=== PATIENT | female | born 1960 | race Hispanic/Latino ===

== ENCOUNTER 2018-06-15 07:44 | Day surgery (SDC) | payer OTHER ==
[2018-06-15] MEDS ORDERED: NACL 0.9% 500 ML 500 ML IV SCH (08:00)
[2018-06-15 08:12] LABS: Basophils # (Auto) 0.1 K/mm3 (0.0-0.1); Basophils % (Auto) 1.1 % (0.0-1.8); Eosinophils # (Auto) 0.2 K/mm3 (0.0-0.4); Hematocrit 35.3 % (30.3-42.9); Hemoglobin 12.1 gm/dl (10.1-14.3); Lymphocytes % (Auto) 15.8 % (13.4-35.0); Mean Corpuscular HGB Conc 34 % (30-34); Mean Corpuscular Hemoglobin 29 pg (28-32); Mean Corpuscular Volume 86 fl (79-97); Monocytes # (Auto) 0.4 K/mm3 (0.0-0.8); Monocytes % (Auto) 7.1 % (0.0-7.3); Platelet Count 239 K/mm3 (140-440); Red Cell Distribution Width 13.7 % (13.2-15.2)
[2018-06-15 08:22] LABS: INR 1.01 (0.87-1.13)
[2018-06-15 08:23] LABS: BUN/Creatinine Ratio 26; Blood Urea Nitrogen 13 mg/dL (7-17); Calcium 9.1 mg/dL (8.4-10.2); Hemolysis Index 12
[2018-06-15] MEDS ORDERED: CALAN ONE (10:08)
[2018-06-15] MEDS ORDERED: HEPARIN/NS 5000 UNIT/500ML(CATH LAB) 1,500 ML IR ONE (10:08)
[2018-06-15] MEDS ORDERED: NITROGLYCERIN SYRINGE 0 ML ONE (10:08)
[2018-06-15] MEDS ORDERED: HEPARIN 10,000 UNITS/10 ML ONE (10:08)
[2018-06-15] MEDS: VERSED ONE ×2 (10:43→10:59)
[2018-06-15] MEDS: XYLOCAINE 2% INFILTRATI ONE ×2 (10:43→11:01)
[2018-06-15] MEDS: SUBLIMAZE ONE ×2 (10:43→10:59)
[2018-06-15] MEDS ORDERED: BENADRYL ONE (11:01)
[2018-06-15] MEDS ORDERED: CATAPRES PO PRN (12:24)
--- NOTE | 2018-06-15 12:24 | Discharge Summary ---
Short Stay Discharge Plan Activity: advance as tolerated Weight Bearing Status: Partial Weight Bearing Diet: low fat, low cholesterol, low salt, diabetic Wound: keep clean and dry Special Instructions: no heavy lifting (3 days), hold Metformin (48 hrs) Follow up with: HERNAN PARKINSON MD [Primary Care Provider] - 7 Days GRAHAM MCDOWELL MD [Staff Physician] - 7 Days
--- NOTE | 2018-06-15 12:35 | Cardiac Catherization Report ---
CARDIAC CATHETERIZATION REASON FOR PROCEDURE: The patient is a 58-year-old woman with COPD on home O2, who presented with progressive shortness of breath. A thallium stress test demonstrated a fixed anterior wall defect. Due to continued symptoms and abnormal thallium stress test, she was recommended for right and left heart catheterization. PROCEDURES: 1. Left heart catheterization. 2. Right heart catheterization. 3. Selective left and right coronary angiography. 4. Left ventricular angiography. 5. Sedation time: 10:58 start and 11:22 end. DESCRIPTION OF PROCEDURE: The patient was prepped and draped in a sterile fashion after informed consent. The right femoral artery and vein were both entered using Seldinger technique. A 6-Haitian sheath was placed in the artery and an 8-Haitian sheath in the vein. A Hinton-Lo catheter was then advanced through the venous sheath, into the right heart and into the pulmonary artery position. A pigtail catheter was similarly inserted into the femoral arterial sheath, and into the right ventricle. Simultaneous right and left heart filling pressures were recorded. Cardiac output was measured using the thermodilution method. The Hinton-Lo catheter was then withdrawn and right heart pressures recorded on pullback. Left ventricular angiography was then performed following which the pigtail catheter was withdrawn across the aortic valve and transaortic gradient recorded. We then performed selective left and right coronary angiography, following which the catheters were removed, sheath removed, and arterial hemostasis achieved using an Angio-Seal device. Venous hemostasis was performed using manual compression. The patient was returned to the postprocedure unit in stable condition. There were no complications. FINDINGS: HEMODYNAMICS: Mean right atrial pressure was 18. Right ventricular pressure of 50/20. Pulmonary artery pressure was 50/30. The mean pulmonary artery wedge pressure was 25. Cardiac output was measured at 8.9 liters per minute. Left ventricular end-diastolic pressure was 25. Ascending aortic pressure was 174/80. There was no significant pressure gradient on pullback across the aortic valve. CORONARY ANGIOGRAPHY: Left main coronary artery was angiographically normal. Left anterior descending artery and its diagonal branches were angiographically normal. The circumflex artery and its obtuse marginal branches were angiographically normal. The right coronary artery was dominant and similarly angiographically normal. There was mild left ventricular systolic dysfunction with mild diffuse hypokinesis. Left ventricular ejection fraction estimated at 45%. CONCLUSION: 1. Elevated right and left heart filling pressures, moderate pulmonary hypertension. 2. Angiographically normal coronary arteries. 3. Mild nonischemic cardiomyopathy, with left ventricular ejection fraction 45%. RECOMMENDATION: 1. Risk factor modification and medical therapy. 2. Pulmonary evaluation and further management of chronic obstructive pulmonary disease. JOB# [id number] CA/NTS
[2018-06-15] MEDS ORDERED: NACL 0.9% 1000 ML 1,000 ML IV SCH (13:00)
[2018-06-15 14:24] VITALS: BP 146/54
== END 2018-06-15 15:45 | disposition home or self-care (01) ==
LOC: CATHLABREC 07:44
PROVIDERS: ATTEND Internal Medicine Cardiovascular Disease
DX: I42.9 Cardiomyopathy, unspecified (principal); I27.20 Pulmonary hypertension, unspecified; J44.9 Chronic obstructive pulmonary disease, unspecified; I10 Essential (primary) hypertension; G47.30 Sleep apnea, unspecified; E03.9 Hypothyroidism, unspecified; Z79.899 Other long term (current) drug therapy; Z79.82 Long term (current) use of aspirin; Z91.040 Latex allergy status; Z91.048 Other nonmedicinal substance allergy status; M10.079 Idiopathic gout, unspecified ankle and foot; Z98.890 Other specified postprocedural states; Z98.51 Tubal ligation status; Z82.49 Family history of ischemic heart disease and other diseases of the circulatory system; Z83.3 Family history of diabetes mellitus; Z82.5 Family history of asthma and other chronic lower respiratory diseases; Z80.8 Family history of malignant neoplasm of other organs or systems; Z83.49 Family history of other endocrine, nutritional and metabolic diseases; Z87.891 Personal history of nicotine dependence
CPT/HCPCS: 36415; 80048; 82962; 85025; 85610; 85730; 93005; 93010; 93460; 99156; 99157; C1760; C1894; J1200; J1644; J2250; J3010; J7040; Q9967

== ENCOUNTER 2018-12-05 22:00 | Inpatient (IN) | payer OTHER ==
--- NOTE | 2018-12-05 22:12 | Emergency Department Report ---
Addendum entered and electronically signed by EARL DEL VALLE NP 12/05/18 22:13: Blank Doc - Documentation Documentation: Correction: Patient to be seen in Main ED. Original Note: Blank Doc - Documentation Documentation: This is a 58-year-old female that presents with SOB. HX of COPD. Was seen in urgent care and was treated with symptoms resolved but came back tonight. Patient also has cough with mucus production. This initial assessment diagnostic orders/clinical plan/treatment(s) is/are subject to change based on patient's health status, clinical progression and re- assessment by fellow clinical providers in the ED. Further treatment and workup at subsequent clinical providers discretion. Patient/guardians urged not to elope from ED s their condition may be serious if not clinically assessed and managed. Initial orders include: 1-patient sent to [facility] for further evaluation and treatment. 2- Breathing treatment 3- CXR 4- labs
[2018-12-05] MEDS ORDERED: ATROVENT IH ONE (22:13)
[2018-12-05] MEDS ORDERED: PROVENTIL IH ONE (22:13)
[2018-12-05] MEDS ORDERED: DECADRON IV ONE (22:13)
--- NOTE | 2018-12-05 22:57 | XRay Report ---
FINAL REPORT PROCEDURE: XR CHEST ROUTINE 2V TECHNIQUE: PA and lateral chest radiographs were obtained. CPT 92464 HISTORY: sob COMPARISON: August 19, 2018 FINDINGS: Heart: Normal. Mediastinum/Vessels: Normal. Lungs/Pleural space: There is mild interstitial accentuation of the lungs. No focal infiltrate. No pl eural effusion. Bony thorax: No acute osseous abnormality. Mild degenerative change. Other: IMPRESSION: Fibrotic densities. No focal infiltrate.
[2018-12-05 23:17] LABS: Basophils # (Auto) 0.1 K/mm3 (0.0-0.1); Basophils % (Auto) 0.4 % (0.0-1.8); Hematocrit 36.2 % (30.3-42.9); Hemoglobin 12.1 gm/dl (10.1-14.3); Lymphocytes # (Auto) 0.8 K/mm3 (1.2-5.4); Lymphocytes % (Auto) 4.7 % (13.4-35.0); Mean Corpuscular HGB Conc 34 % (30-34); Mean Corpuscular Volume 89 fl (79-97); Monocytes # (Auto) 0.9 K/mm3 (0.0-0.8); Monocytes % (Auto) 5.6 % (0.0-7.3); Platelet Count 312 K/mm3 (140-440); Red Blood Count 4.09 M/mm3 (3.65-5.03); Red Cell Distribution Width 14.2 % (13.2-15.2)
[2018-12-05 23:42] LABS: Alanine Aminotransferase 19 units/L (7-56); BUN/Creatinine Ratio 20; Blood Urea Nitrogen 16 mg/dL (7-17); Calcium 9.6 mg/dL (8.4-10.2); Hemolysis Index 2
--- NOTE | 2018-12-06 00:41 | Emergency Department Report ---
ED Shortness of Breath HPI - General Chief Complaint: Dyspnea/Respdistress Stated Complaint: MATA Time Seen by Provider: 12/05/18 22:10 Source: patient Mode of arrival: Ambulatory Limitations: No Limitations - History of Present Illness Initial Comments: 58-year-old female with history of COPD presents to ED with complaint shortness of breath. Patient reported cough productive of yellow sputum, wheezing, dyspnea on exertion. Patient denies fever. Patient states she was seen at urgent care facility on yesterday and was given a breathing treatment along with prescription for prednisone and cough medication. Patient states she was feeling okay until this evening when her symptoms returned. She administered a breathing treatment at home, however did not help so she decided to come to the ER. She denies chest pain. PCP: Dr Slade Sweeney: Dr Aster SARKAR Complaint: shortness of breath -: days(s) (3) Severity: moderate Consistency: intermittent Improves With: bronchodilators Worsens With: exertion, coughing Known History Of: COPD Associated Symptoms: cough, sputum production Treatments Prior to Arrival: bronchodilator - Related Data Home Medications Medication Instructions Recorded Confirmed Last Taken Albuterol Sulfate [Ventolin Hfa] 2 puff INHALATION Q4H PRN 06/15/18 12/06/18 06/01/18 2 puffs Aspirin EC [Aspirin Enteric Coated 325 mg PO DAILY 06/15/18 12/06/18 06/14/18 22:00 TAB] 325mg Gabapentin [Neurontin] 300 mg PO HS 06/15/18 12/06/18 06/14/18 300mg Labetalol HCl 300 mg PO BID 06/15/18 12/06/18 06/15/18 06:00 300mg Levothyroxine [Synthroid] 112 mcg PO DAILY 06/15/18 12/06/18 06/15/18 06:00 112 mcg Pravastatin [Pravachol] 20 mg PO HS 06/15/18 12/06/18 06/14/18 20mg Verapamil ER [Calan SR] 180 mg PO HS 06/15/18 12/06/18 06/14/18 22:30 180mg Cetirizine HCl [Allergy Relief] 10 mg PO DAILY 08/19/18 12/06/18 Unknown Tiotropium [Spiriva] 2 puff IH DAILY 12/06/18 12/06/18 Unknown Previous Rx's Medication Instructions Recorded Last Taken Type glipiZIDE [Glucotrol] 5 mg PO QDAY #30 tablet 08/24/18 Unknown Rx Allergies Allergy/AdvReac Type Severity Reaction Status Date / Time contact metal agent Allergy Rash Verified 06/15/18 07:40 latex Allergy Hives Verified 01/19/14 12:55 ED Review of Systems ROS: Stated complaint: MATA Other details as noted in HPI Comment: All other systems reviewed and negative Constitutional: denies: chills, fever Respiratory: cough, SOB with exertion, wheezing Cardiovascular: denies: chest pain ED Past Medical Hx - Past Medical History Hx Hypertension: Yes Hx Diabetes: Yes Hx Asthma: Yes Hx COPD: Yes Additional medical history: thyroid problem; High cholestrol - Surgical History Additional Surgical History: adrenal gland right side removed. Tubal ligation. cardiac cath - Social History Smoking Status: Former Smoker Substance Use Type: None - Medications Home Medications: Home Medications Medication Instructions Recorded Confirmed Last Taken Type Albuterol Sulfate [Ventolin Hfa] 2 puff INHALATION Q4H PRN 06/15/18 12/06/18 06/01/18 History 2 puffs Aspirin EC [Aspirin Enteric Coated 325 mg PO DAILY 06/15/18 12/06/18 06/14/18 22:00 History TAB] 325mg Gabapentin [Neurontin] 300 mg PO HS 06/15/18 12/06/18 06/14/18 History 300mg Labetalol HCl 300 mg PO BID 06/15/18 12/06/18 06/15/18 06:00 History 300mg Levothyroxine [Synthroid] 112 mcg PO DAILY 06/15/18 12/06/18 06/15/18 06:00 History 112 mcg Pravastatin [Pravachol] 20 mg PO HS 06/15/18 12/06/18 06/14/18 History 20mg Verapamil ER [Calan SR] 180 mg PO HS 06/15/18 12/06/18 06/14/18 22:30 History 180mg Cetirizine HCl [Allergy Relief] 10 mg PO DAILY 08/19/18 12/06/18 Unknown History glipiZIDE [Glucotrol] 5 mg PO QDAY #30 tablet 08/24/18 12/06/18 Unknown Rx Tiotropium [Spiriva] 2 puff IH DAILY 12/06/18 12/06/18 Unknown History ED Physical Exam - General Limitations: No Limitations General appearance: alert - Head Head exam: Present: atraumatic, normocephalic - Eye Eye exam: Present: normal appearance - ENT ENT exam: Present: mucous membranes moist - Neck Neck exam: Present: normal inspection - Respiratory Respiratory exam: Present: wheezes (slight), decreased breath sounds - Cardiovascular Cardiovascular Exam: Present: normal rhythm, tachycardia - GI/Abdominal GI/Abdominal exam: Present: soft. Absent: distended - Extremities Exam Extremities exam: Absent: pedal edema, calf tenderness - Neurological Exam Neurological exam: Present: alert, oriented X3 - Psychiatric Psychiatric exam: Present: normal affect, normal mood - Skin Skin exam: Present: warm, dry, intact, normal color ED Course Vital Signs 12/05/18 12/05/18 12/05/18 22:07 22:10 23:51 Temperature 98.2 F 98.2 F 98.2 F Pulse Rate 139 H 138 H 119 H Pulse Rate [ Bilateral] Respiratory 18 22 28 H Rate Respiratory Rate [Bilateral ] Blood Pressure 174/85 174/85 Blood Pressure 139/76 [Left] O2 Sat by Pulse 94 94 91 Oximetry 12/05/18 12/06/18 12/06/18 23:54 00:00 00:47 Temperature Pulse Rate 116 H Pulse Rate [ 118 H Bilateral] Respiratory 21 Rate Respiratory 28 H Rate [Bilateral ] Blood Pressure 132/63 Blood Pressure [Left] O2 Sat by Pulse 98 96 Oximetry 12/06/18 01:00 Temperature Pulse Rate 102 H Pulse Rate [ Bilateral] Respiratory 17 Rate Respiratory Rate [Bilateral ] Blood Pressure 131/74 Blood Pressure [Left] O2 Sat by Pulse 95 Oximetry ED Medical Decision Making - Lab Data Result diagrams: 12/05/18 22:56 12/05/18 22:56 - EKG Data -: EKG Interpreted by Ia EKG shows normal: sinus rhythm, axis, intervals, QRS complexes, ST-T waves Rate: tachycardia (rate 101) - EKG Data Interpretation: no acute changes - Radiology Data Radiology results: report reviewed, image reviewed - Medical Decision Making 58-year-old female with COPD exacerbation. Seen at urgent care yesterday, required ED visit today for shortness of breath. Patient afebrile. On exam patient has decreased breath sounds with slight wheezing. She was given a one nebulizer treatment here in ED, after which she states she is feeling much better. O2 sats 91% on room air following neb treatment, not on home O2. Spoke w/ Dr Nagy, hospitalist, will admit. - Differential Diagnosis COPD, CHF, pneumonia Critical Care Time: Yes Critical care time in (mins) excluding proc time.: 30 Critical care attestation.: If time is entered above; I have spent that time in minutes in the direct care of this critically ill patient, excluding procedure time. Critical Care Time: 30 minutes ED Disposition Clinical Impression: COPD with acute exacerbation, Hypoxia Disposition: 09 OP ADMIT IP TO THIS HOSP Is pt being admited?: Yes Condition: Stable Instructions: Chronic Obstructive Pulmonary Disease (ED) Time of Disposition: 01:53
[2018-12-06] MEDS ORDERED: DECADRON ONE (01:18)
[2018-12-06] MEDS ORDERED: LEVAQUIN PO ONE (01:49)
[2018-12-06] MEDS ORDERED: ZOFRAN IV PRN (02:53)
[2018-12-06] MEDS ORDERED: SODIUM CHLORIDE FLUSH SYRINGE 10 ML IV PRN (02:53)
[2018-12-06] MEDS ORDERED: TYLENOL PO PRN (02:53)
--- NOTE | 2018-12-06 02:57 | History and Physical Report ---
Medications and Allergies Allergies Allergy/AdvReac Type Severity Reaction Status Date / Time contact metal agent Allergy Rash Verified 06/15/18 07:40 latex Allergy Hives Verified 01/19/14 12:55 levofloxacin AdvReac Unknown Verified 12/06/18 02:22 Home Medications Medication Instructions Recorded Confirmed Last Taken Type Albuterol Sulfate [Ventolin Hfa] 2 puff INHALATION Q4H PRN 06/15/18 12/06/18 06/01/18 History 2 puffs Aspirin EC [Aspirin Enteric Coated 325 mg PO DAILY 06/15/18 12/06/18 06/14/18 22:00 History TAB] 325mg Gabapentin [Neurontin] 300 mg PO HS 06/15/18 12/06/18 06/14/18 History 300mg Labetalol HCl 300 mg PO BID 06/15/18 12/06/18 06/15/18 06:00 History 300mg Levothyroxine [Synthroid] 112 mcg PO DAILY 06/15/18 12/06/18 06/15/18 06:00 History 112 mcg Pravastatin [Pravachol] 20 mg PO HS 06/15/18 12/06/18 06/14/18 History 20mg Verapamil ER [Calan SR] 180 mg PO HS 06/15/18 12/06/18 06/14/18 22:30 History 180mg Cetirizine HCl [Allergy Relief] 10 mg PO DAILY 08/19/18 12/06/18 Unknown History glipiZIDE [Glucotrol] 5 mg PO QDAY #30 tablet 08/24/18 12/06/18 Unknown Rx Tiotropium [Spiriva] 2 puff IH DAILY 12/06/18 12/06/18 Unknown History Exam - Constitutional Vitals: Temp Pulse Resp BP Pulse Ox 98.2 F 119 H 28 H 131/74 95 12/05/18 23:51 12/06/18 01:00 12/06/18 01:00 12/06/18 01:00 12/06/18 01:00 Results - Labs CBC & Chem 7: 12/05/18 22:56 12/05/18 22:56 Labs: Abnormal lab results 12/05/18 12/05/18 Range/Units 22:56 22:56 WBC 16.4 H (4.5-11.0) K/mm3 Lymph % (Auto) 4.7 L (13.4-35.0) % Lymph # 0.8 L (1.2-5.4) K/mm3 [place] # 0.9 H (0.0-0.8) K/mm3 Seg Neutrophils % 89.3 H (40.0-70.0) % Seg Neutrophils # 14.6 H (1.8-7.7) K/mm3 Glucose 180 H (65-100) mg/dL Magnesium 1.50 L (1.7-2.3) mg/dL
--- NOTE | 2018-12-06 03:13 | History and Physical Report ---
History of Present Illness Date of examination: 12/06/18 History of present illness: 58-year-old woman with a history of hypertension, diabetes, hyperlipidemia, COPD, hypothyroidism comes emergency room with complaints of shortness of breath and cough productive of yellow phlegm. She went to urgent care yesterday, she was given steroids and doxycycline which she has been taking, however she stated that her symptoms have not improved. She also complained of diarrhea 2 days, multiple episodes Review of systems Constitutional: no weight loss, chills, fever Ears, eyes, nose, mouth and throat: no nasal congestion, no nasal discharge, no sinus pressure, no vision change, no red eye. Neck: No neck pain or rigidity. Cardiovascular: no palpitations, chest pain Respiratory: no cough, shortness of breath Gastrointestinal: no hematochezia, abdominal pain Genitourinary : no frequency , no hematuria Musculoskeletal: no joint swelling or muscle ache Integumentary: no rash, no pruritis Neurological: no parathesias, no focal weakness Endocrine: no cold or heat intolerance, no polyuria or polydipsia Hematologic/Lymphatic: no easy bruising, no easy bleeding, no gland swelling Allergic/Immunologic: no urticaria, no angioedema. PAST MEDICAL HISTORY: hypertension, diabetes, hyperlipidemia, COPD, hypothyroidism PAST SURGICAL HISTORY: Adrenalectomy, tubal ligation SOCIAL HISTORY: Denies alcohol, drugs, tobacco FAMILY HISTORY: Hypertension Medications and Allergies Allergies Allergy/AdvReac Type Severity Reaction Status Date / Time contact metal agent Allergy Rash Verified 06/15/18 07:40 latex Allergy Hives Verified 01/19/14 12:55 levofloxacin AdvReac Unknown Verified 12/06/18 02:22 Home Medications Medication Instructions Recorded Confirmed Last Taken Type Albuterol Sulfate [Ventolin Hfa] 2 puff INHALATION Q4H PRN 06/15/18 12/06/18 06/01/18 History 2 puffs Aspirin EC [Aspirin Enteric Coated 325 mg PO DAILY 06/15/18 12/06/18 06/14/18 22:00 History TAB] 325mg Gabapentin [Neurontin] 300 mg PO HS 06/15/18 12/06/18 06/14/18 History 300mg Labetalol HCl 300 mg PO BID 06/15/18 12/06/18 06/15/18 06:00 History 300mg Levothyroxine [Synthroid] 112 mcg PO DAILY 06/15/18 12/06/18 06/15/18 06:00 Hi story 112 mcg Pravastatin [Pravachol] 20 mg PO HS 06/15/18 12/06/18 06/14/18 History 20mg Verapamil ER [Calan SR] 180 mg PO HS 06/15/18 12/06/18 06/14/18 22:30 History 180mg Cetirizine HCl [Allergy Relief] 10 mg PO DAILY 08/19/18 12/06/18 Unknown History glipiZIDE [Glucotrol] 5 mg PO QDAY #30 tablet 08/24/18 12/06/18 Unknown Rx Tiotropium [Spiriva] 2 puff IH DAILY 12/06/18 12/06/18 Unknown History Active Meds: Active Medications Acetaminophen (Tylenol) 650 mg PO Q4H PRN PRN Reason: Pain MILD(1-3)/Fever >100.5/ROGERS Albuterol/Ipratropium (Duoneb *Not For Prn Use*) 1 ampul IH Q6HRT SARINA Enoxaparin Sodium (Lovenox) 30 mg SUB-Q QDAY SARINA Ceftriaxone Sodium (Rocephin/Ns 1 Gm/50 Ml) 1 gm in 50 mls @ 100 mls/hr IV Q24H SARINA; Protocol Sodium Chloride (Nacl 0.9% 1000 Ml) 1,000 mls @ 125 mls/hr IV DIRECT SARINA Ondansetron HCl (Zofran) 4 mg IV Q8H PRN PRN Reason: Nausea And Vomiting Sodium Chloride (Sodium Chloride Flush Syringe 10 Ml) 10 ml IV BID SARINA Sodium Chloride (Sodium Chloride Flush Syringe 10 Ml) 10 ml IV PRN PRN PRN Reason: LINE FLUSH Exam - Physical Exam Narrative exam: General Apperance: The patient lying in bed, breathing comfortable HEENT: Normocephalic, atraumatic. Pupils equally round and reactive to light, EOMI, no sclericterus or JVD or thyromegaly or nodule. , no carotid bruit, mucous membranes moist, no exudate or erythema Heart: S1-S2, regular is rhythm Lungs: Decreased breath sounds bilaterally, breathing comfortable Abdomen: Positive bowel sounds, soft, nontender, nondistended, no organomegaly Extremities: No edema cyanosis clubbing Skin: no rash, nodule, warm and dry Neuro: cranial nerves 2-12 intact, speech is fluent, motor/sensory intact - Constitutional Vitals: Temp Pulse Resp BP Pulse Ox 98.2 F 119 H 28 H 131/74 95 12/05/18 23:51 12/06/18 01:00 12/06/18 01:00 12/06/18 01:00 12/06/18 01:00 Results - Labs CBC & Chem 7: 12/05/18 22:56 12/05/18 22:56 Labs: Abnormal lab results 12/05/18 12/05/18 Range/Units 22:56 22:56 WBC 16.4 H (4.5-11.0) K/mm3 Lymph % (Auto) 4.7 L (13.4-35.0) % Lymph # 0.8 L (1.2-5.4) K/mm3 [place] # 0.9 H (0.0-0.8) K/mm3 Seg Neutrophils % 89.3 H (40.0-70.0) % Seg Neutrophils # 14.6 H (1.8-7.7) K/mm3 Glucose 180 H (65-100) mg/dL Magnesium 1.50 L (1.7-2.3) mg/dL - Imaging and Cardiology EKG: image reviewed Chest x-ray: image reviewed Assessment and Plan Assessment Acute COPD exacerbation Diarrhea, rule out C. difficile Hypertension Diabetes Hyperlipidemia Hypothyroidism Plan Admit to medicine Start high-dose steroids, Rocephin Check stool cultures Check fingersticks initiate insulin sliding scale Hold antihypertensives, relative hypotension Continue appropriate outpatient medications DVT prophylaxis
[2018-12-06] MEDS ORDERED: D50W (25GM) Syringe IV PRN (03:16)
[2018-12-06] MEDS: ROCEPHIN/NS 1 GM/50 ML 1 GM/50 ML BAG IV SCH (03:30)
[2018-12-06] MEDS ORDERED: PROVENTIL IH PRN (05:15)
[2018-12-06 06:18] LABS: Hematocrit 34.5 % (30.3-42.9); Hemoglobin 11.8 gm/dl (10.1-14.3); Mean Corpuscular HGB Conc 34 % (30-34); Mean Corpuscular Volume 88 fl (79-97); Platelet Count 305 K/mm3 (140-440); Red Blood Count 3.92 M/mm3 (3.65-5.03); Red Cell Distribution Width 14.1 % (13.2-15.2)
[2018-12-06 06:33] LABS: BUN/Creatinine Ratio 20; Blood Urea Nitrogen 16 mg/dL (7-17); Calcium 9.1 mg/dL (8.4-10.2); Hemolysis Index 5
[2018-12-06] MEDS: DUONEB *Not for PRN Use IH SCH ×5 (06:39→19:30)
[2018-12-06 08:26] LABS: Anisocytosis 1+; Basophils % (Manual) 0 % (0.0-1.8); Eosinophils % (Manual) 0 % (0.0-4.3); Platelet Estimate Consistent w Auto; Total Cells Counted 100
[2018-12-06] MEDS: HumaLOG SUB-Q SCH ×4 (08:30→22:10)
[2018-12-06] MEDS: GLUCOTROL PO SCH (09:17)
[2018-12-06] MEDS: SODIUM CHLORIDE FLUSH SYRINGE 10 ML IV SCH ×2 (09:18→21:49)
[2018-12-06] MEDS: SYNTHROID PO SCH (09:18)
[2018-12-06] MEDS: LOVENOX SUB-Q SCH (09:18)
[2018-12-06] MEDS: ECOTRIN PO SCH (09:18)
[2018-12-06] MEDS: NACL 0.9% 1000 ML 1,000 ML IV SCH ×2 (09:21→22:22)
[2018-12-06] MEDS ORDERED: LOVENOX SUB-Q SCH (10:00)
[2018-12-06] MEDS: SOLU-Medrol IV SCH ×3 (11:49→23:25)
[2018-12-06] MEDS: HYDROMET PO PRN ×2 (12:43→21:48)
--- NOTE | 2018-12-06 14:38 | Event Note ---
Date: 12/06/18 Pt was was admitted today was seen and examined. Reviewed lab and meds. Continue with same management
[2018-12-06] MEDS: PEPCID IV SCH (18:21)
[2018-12-06] MEDS: CALAN SR PO SCH (21:46)
[2018-12-06] MEDS: NEURONTIN PO SCH (21:47)
[2018-12-06] MEDS: PRAVACHOL PO SCH (21:47)
[2018-12-07] MEDS: DUONEB *Not for PRN Use IH SCH ×4 (01:43→20:15)
[2018-12-07] MEDS: SYNTHROID PO SCH (05:52)
[2018-12-07] MEDS: ROCEPHIN/NS 1 GM/50 ML 1 GM/50 ML BAG IV SCH (05:54)
[2018-12-07] MEDS: SOLU-Medrol IV SCH ×3 (05:57→19:00)
[2018-12-07] MEDS: HumaLOG SUB-Q SCH ×4 (08:30→22:47)
[2018-12-07] MEDS: ECOTRIN PO SCH (09:47)
[2018-12-07] MEDS: GLUCOTROL PO SCH (09:47)
[2018-12-07] MEDS: LOVENOX SUB-Q SCH (09:47)
[2018-12-07] MEDS: PEPCID IV SCH (09:47)
[2018-12-07] MEDS: HYDROMET PO PRN ×2 (09:48→21:21)
[2018-12-07] MEDS: SODIUM CHLORIDE FLUSH SYRINGE 10 ML IV SCH ×2 (09:48→21:25)
[2018-12-07] MEDS: NACL 0.9% 1000 ML 1,000 ML IV SCH (09:48)
--- NOTE | 2018-12-07 17:12 | Progress Note ---
Assessment and Plan Assessment and plan: Acute COPD exacerbation -cont steroids, duonebs and antibiotic Diarrhea -C. difficile toxin pending Hypertension -Uncontrolled, home labetalol presumed DM2 -Controlled on SSI and glipizide Hyperlipidemia -on statin Hypothyroidism -cont synthroid Obesity with BMI of 38.9 -Lifestyle modification recommended Disposition: For discharge when medically stable History Interval history: Patient complaining of shortness of breath with mild exertion Hospitalist Physical - Constitutional Vitals: Temp Pulse Resp BP Pulse Ox 98.5 F 115 H 16 150/73 92 12/07/18 12:23 12/07/18 14:20 12/07/18 14:20 12/07/18 12:23 12/07/18 10:00 General appearance: Present: no acute distress - EENT Eyes: Present: PERRL, EOM intact ENT: hearing intact, clear oral mucosa - Respiratory Respiratory effort: normal Respiratory: bilateral: diminished, wheezing - Cardiovascular Rhythm: regular Heart Sounds: Present: S1 & S2 - Extremities Extremity abnormal: other (trace edema in bilateral lower extremities) - Abdominal General gastrointestinal: soft, non-tender, normal bowel sounds - Neurologic Neurologic: CNII-XII intact Results - Labs CBC & Chem 7: 12/06/18 05:27 12/06/18 05:27 Labs: Laboratory Last Values WBC 15.9 K/mm3 (4.5-11.0) H 12/06/18 05:27 RBC 3.92 M/mm3 (3.65-5.03) 12/06/18 05:27 Hgb 11.8 gm/dl (10.1-14.3) 12/06/18 05:27 Hct 34.5 % (30.3-42.9) 12/06/18 05:27 MCV 88 fl (79-97) 12/06/18 05:27 MCH 30 pg (28-32) 12/06/18 05:27 MCHC 34 % (30-34) 12/06/18 05:27 RDW 14.1 % (13.2-15.2) 12/06/18 05:27 Plt Count 305 K/mm3 (140-440) 12/06/18 05:27 Lymph % (Auto) 4.7 % (13.4-35.0) L 12/05/18 22:56 [place] % (Auto) 5.6 % (0.0-7.3) 12/05/18 22:56 Eos % (Auto) 0.0 % (0.0-4.3) 12/05/18 22:56 Baso % (Auto) 0.4 % (0.0-1.8) 12/05/18 22:56 Lymph # 0.8 K/mm3 (1.2-5.4) L 12/05/18 22:56 [place] # 0.9 K/mm3 (0.0-0.8) H 12/05/18 22:56 Eos # 0.0 K/mm3 (0.0-0.4) 12/05/18 22:56 Baso # 0.1 K/mm3 (0.0-0.1) 12/05/18 22:56 Add Manual Diff Complete 12/06/18 05:27 Total Counted 100 12/06/18 05:27 Seg Neutrophils % Language Translator 12/06/18 05:27 Seg Neuts % (Manual) 95.0 % (40.0-70.0) H 12/06/18 05:27 Band Neutrophils % 0 % 12/06/18 05:27 Lymphocytes % (Manual) 3.0 % (13.4-35.0) L 12/06/18 05:27 Reactive Lymphs % (Man) 0 % 12/06/18 05:27 Monocytes % (Manual) 2.0 % (0.0-7.3) 12/06/18 05:27 Eosinophils % (Manual) 0 % (0.0-4.3) 12/06/18 05:27 Basophils % (Manual) 0 % (0.0-1.8) 12/06/18 05:27 Metamyelocytes % 0 % 12/06/18 05:27 Myelocytes % 0 % 12/06/18 05:27 Promyelocytes % 0 % 12/06/18 05:27 Blast Cells % 0 % 12/06/18 05:27 Nucleated RBC % Not Reportable 12/06/18 05:27 Seg Neutrophils # 14.6 K/mm3 (1.8-7.7) H 12/05/18 22:56 Seg Neutrophils # Man 15.1 K/mm3 (1.8-7.7) H 12/06/18 05:27 Band Neutrophils # 0.0 K/mm3 12/06/18 05:27 Lymphocytes # (Manual) 0.5 K/mm3 (1.2-5.4) L 12/06/18 05:27 Abs React Lymphs (Man) 0.0 K/mm3 12/06/18 05:27 Monocytes # (Manual) 0.3 K/mm3 (0.0-0.8) 12/06/18 05:27 Eosinophils # (Manual) 0.0 K/mm3 (0.0-0.4) 12/06/18 05:27 Basophils # (Manual) 0.0 K/mm3 (0.0-0.1) 12/06/18 05:27 Metamyelocytes # 0.0 K/mm3 12/06/18 05:27 Myelocytes # 0.0 K/mm3 12/06/18 05:27 Promyelocytes # 0.0 K/mm3 12/06/18 05:27 Blast Cells # 0.0 K/mm3 12/06/18 05:27 WBC Morphology Not Reportable 12/06/18 05:27 Hypersegmented Neuts Not Reportable 12/06/18 05:27 Hyposegmented Neuts Not Reportable 12/06/18 05:27 Hypogranular Neuts Not Reportable 12/06/18 05:27 Smudge Cells Not Reportable 12/06/18 05:27 Toxic Granulation Not Reportable 12/06/18 05:27 Toxic Vacuolation Not Reportable 12/06/18 05:27 Dohle Bodies Not Reportable 12/06/18 05:27 Pelger-Huet Anomaly Not Reportable 12/06/18 05:27 Carolyn Rods Not Reportable 12/06/18 05:27 Platelet Estimate Consistent w auto 12/06/18 05:27 Clumped Platelets Not Reportable 12/06/18 05:27 Plt Clumps, EDTA Not Reportable 12/06/18 05:27 Large Platelets Not Reportable 12/06/18 05:27 Giant Platelets Not Reportable 12/06/18 05:27 Platelet Satelliting Not Reportable 12/06/18 05:27 Plt Morphology Comment Not Reportable 12/06/18 05:27 RBC Morphology Not Reportable 12/06/18 05:27 Dimorphic RBCs Not Reportable 12/06/18 05:27 Polychromasia Not Reportable 12/06/18 05:27 Hypochromasia Not Reportable 12/06/18 05:27 Poikilocytosis Not Reportable 12/06/18 05:27 Anisocytosis 1+ 12/06/18 05:27 Microcytosis Not Reportable 12/06/18 05:27 Macrocytosis Not Reportable 12/06/18 05:27 Spherocytes Not Reportable 12/06/18 05:27 Pappenheimer Bodies Not Reportable 12/06/18 05:27 Sickle Cells Not Reportable 12/06/18 05:27 Target Cells Not Reportable 12/06/18 05:27 Tear Drop Cells Not Reportable 12/06/18 05:27 Ovalocytes Not Reportable 12/06/18 05:27 Helmet Cells Not Reportable 12/06/18 05:27 [place] Bodies Not Reportable 12/06/18 05:27 [place] Rings Not Reportable 12/06/18 05:27 [place] Cells Not Reportable 12/06/18 05:27 Bite Cells Not Reportable 12/06/18 05:27 Crenated Cell Not Reportable 12/06/18 05:27 Elliptocytes Not Reportable 12/06/18 05:27 Acanthocytes (Spur) Not Reportable 12/06/18 05:27 Rouleaux Not Reportable 12/06/18 05:27 Hemoglobin C Crystals Not Reportable 12/06/18 05:27 Schistocytes Not Reportable 12/06/18 05:27 Malaria parasites Not Reportable 12/06/18 05:27 Adolfo Bodies Not Reportable 12/06/18 05:27 Hem Pathologist Commnt No 12/06/18 05:27 Sodium 142 mmol/L (137-145) 12/06/18 05:27 Potassium 4.1 mmol/L (3.6-5.0) 12/06/18 05:27 Chloride 103.1 mmol/L (98-107) 12/06/18 05:27 Carbon Dioxide 26 mmol/L (22-30) 12/06/18 05:27 Anion Gap 17 mmol/L 12/06/18 05:27 BUN 16 mg/dL (7-17) 12/06/18 05:27 Creatinine 0.8 mg/dL (0.7-1.2) 12/06/18 05:27 Estimated GFR > 60 ml/min 12/06/18 05:27 BUN/Creatinine Ratio 20 % 12/06/18 05:27 Glucose 158 mg/dL (65-100) H 12/06/18 05:27 POC Glucose 159 (70-105) H 12/07/18 12:25 Calcium 9.1 mg/dL (8.4-10.2) 12/06/18 05:27 Magnesium 1.50 mg/dL (1.7-2.3) L 12/05/18 22:56 Total Bilirubin 0.30 mg/dL (0.1-1.2) 12/05/18 22:56 AST 18 units/L (5-40) 12/05/18 22:56 ALT 19 units/L (7-56) 12/05/18 22:56 Alkaline Phosphatase 76 units/L (35-129) 12/05/18 22:56 Troponin T < 0.010 ng/mL (0.00-0.029) 12/06/18 00:05 NT-Pro-B Natriuret Pep 448.0 pg/mL (0-900) 12/05/18 22:56 Total Protein 7.0 g/dL (6.3-8.2) 12/05/18 22:56 Albumin 4.0 g/dL (3.9-5) 12/05/18 22:56 Albumin/Globulin Ratio 1.3 % 12/05/18 22:56
[2018-12-07] MEDS: NEURONTIN PO SCH (21:21)
[2018-12-07] MEDS: PRAVACHOL PO SCH (21:21)
[2018-12-07] MEDS: MUCINEX ER PO SCH (21:21)
[2018-12-07] MEDS: CALAN SR PO SCH (21:22)
[2018-12-07] MEDS: NORMODYNE PO SCH (21:22)
[2018-12-07] MEDS ORDERED: NON-FORMULARY (Labetalol Hcl [Labetalol Hcl] 300 MG) PO SCH (22:00)
[2018-12-08] MEDS: SOLU-Medrol IV SCH ×4 (00:55→17:35)
[2018-12-08] MEDS: NACL 0.9% 1000 ML 1,000 ML IV SCH ×2 (00:59→17:46)
[2018-12-08] MEDS: DUONEB *Not for PRN Use IH SCH ×4 (01:58→21:05)
[2018-12-08 05:30] LABS: Hematocrit 32.7 % (30.3-42.9); Mean Corpuscular HGB Conc 34 % (30-34); Mean Corpuscular Volume 89 fl (79-97); Platelet Count 270 K/mm3 (140-440); Red Blood Count 3.68 M/mm3 (3.65-5.03); Red Cell Distribution Width 13.6 % (13.2-15.2)
[2018-12-08 06:15] LABS: Basophils % (Manual) 0 % (0.0-1.8); Eosinophils % (Manual) 0 % (0.0-4.3); Monocytes % (Manual) 0 % (0.0-7.3); Total Cells Counted 100
[2018-12-08 06:18] LABS: Anisocytosis 1+; Ovalocytes 2+; Tear Drop Cells Few
[2018-12-08 06:19] LABS: Stomatocytes Rare
[2018-12-08] MEDS: SYNTHROID PO SCH (06:38)
[2018-12-08] MEDS: ROCEPHIN/NS 1 GM/50 ML 1 GM/50 ML BAG IV SCH (06:38)
[2018-12-08] MEDS: HYDROMET PO PRN ×2 (06:44→23:07)
[2018-12-08] MEDS: GLUCOTROL PO SCH (08:44)
[2018-12-08] MEDS: HumaLOG SUB-Q SCH ×4 (08:44→22:48)
[2018-12-08] MEDS ORDERED: NON-FORMULARY (Cetirizine Hcl [Allergy Relief] 10 MG) PO SCH (10:00)
[2018-12-08] MEDS: NORMODYNE PO SCH ×2 (11:27→22:47)
[2018-12-08] MEDS: PEPCID IV SCH (11:28)
[2018-12-08] MEDS: CLARITIN PO SCH (11:28)
[2018-12-08] MEDS: MUCINEX ER PO SCH ×2 (11:28→22:47)
[2018-12-08] MEDS: ECOTRIN PO SCH (11:28)
[2018-12-08] MEDS: LOVENOX SUB-Q SCH (11:28)
[2018-12-08] MEDS: SODIUM CHLORIDE FLUSH SYRINGE 10 ML IV SCH ×2 (11:29→22:47)
--- NOTE | 2018-12-08 12:29 | Progress Note ---
Assessment and Plan Assessment and plan: Acute COPD exacerbation -Improving -cont steroids, duonebs and antibiotic Acute respiratory failure with hypoxia, present on admission evidenced by respiratory distress -cont 02 supplementation as needed and duonebs -for home 02 eval on d/c SIRS due to non-infectious cause, present on admission -stable on empiric antibiotic Diarrhea -resolved -will d/c C. difficile toxin test Hypertension -controlled on meds DM2 -Controlled on SSI and glipizide Hyperlipidemia -on statin Hypothyroidism -cont synthroid Obesity with BMI of 38.9 -Lifestyle modification recommended Disposition: For possible d/c in am if medically stable History Interval history: Patient reported feeling better today. Her shortness of breath has improved Hospitalist Physical - Constitutional Vitals: Temp Pulse Resp BP Pulse Ox 97.9 F 85 20 139/71 95 12/08/18 05:58 12/08/18 05:58 12/08/18 05:58 12/08/18 05:58 12/08/18 05:58 General appearance: Present: no acute distress - EENT Eyes: Present: PERRL, EOM intact ENT: hearing intact, clear oral mucosa - Neck Neck: Present: supple, normal ROM - Respiratory Respiratory effort: normal Respiratory: bilateral: wheezing - Cardiovascular Rhythm: regular Heart Sounds: Present: S1 & S2 - Extremities Extremity abnormal: other (trace edema in BLE) - Abdominal General gastrointestinal: soft, non-tender, normal bowel sounds - Neurologic Neurologic: CNII-XII intact Results - Labs CBC & Chem 7: 12/08/18 04:55 12/06/18 05:27 Labs: Laboratory Last Values WBC 14.1 K/mm3 (4.5-11.0) H 12/08/18 04:55 RBC 3.68 M/mm3 (3.65-5.03) 12/08/18 04:55 Hgb 11.0 gm/dl (10.1-14.3) 12/08/18 04:55 Hct 32.7 % (30.3-42.9) 12/08/18 04:55 MCV 89 fl (79-97) 12/08/18 04:55 MCH 30 pg (28-32) 12/08/18 04:55 MCHC 34 % (30-34) 12/08/18 04:55 RDW 13.6 % (13.2-15.2) 12/08/18 04:55 Plt Count 270 K/mm3 (140-440) 12/08/18 04:55 Lymph % (Auto) 4.7 % (13.4-35.0) L 12/05/18 22:56 [place] % (Auto) 5.6 % (0.0-7.3) 12/05/18 22:56 Eos % (Auto) 0.0 % (0.0-4.3) 12/05/18 22:56 Baso % (Auto) 0.4 % (0.0-1.8) 12/05/18 22:56 Lymph # 0.8 K/mm3 (1.2-5.4) L 12/05/18 22:56 [place] # 0.9 K/mm3 (0.0-0.8) H 12/05/18 22:56 Eos # 0.0 K/mm3 (0.0-0.4) 12/05/18 22:56 Baso # 0.1 K/mm3 (0.0-0.1) 12/05/18 22:56 Add Manual Diff Complete 12/08/18 04:55 Total Counted 100 12/08/18 04:55 Seg Neutrophils % [place] 12/08/18 04:55 Seg Neuts % (Manual) 97.0 % (40.0-70.0) H 12/08/18 04:55 Band Neutrophils % 0 % 12/08/18 04:55 Lymphocytes % (Manual) 3.0 % (13.4-35.0) L 12/08/18 04:55 Reactive Lymphs % (Man) 0 % 12/08/18 04:55 Monocytes % (Manual) 0 % (0.0-7.3) 12/08/18 04:55 Eosinophils % (Manual) 0 % (0.0-4.3) 12/08/18 04:55 Basophils % (Manual) 0 % (0.0-1.8) 12/08/18 04:55 Metamyelocytes % 0 % 12/08/18 04:55 Myelocytes % 0 % 12/08/18 04:55 Promyelocytes % 0 % 12/08/18 04:55 Blast Cells % 0 % 12/08/18 04:55 Nucleated RBC % Not Reportable 12/08/18 04:55 Seg Neutrophils # 14.6 K/mm3 (1.8-7.7) H 12/05/18 22:56 Seg Neutrophils # Man 13.7 K/mm3 (1.8-7.7) H 12/08/18 04:55 Band Neutrophils # 0.0 K/mm3 12/08/18 04:55 Lymphocytes # (Manual) 0.4 K/mm3 (1.2-5.4) L 12/08/18 04:55 Abs React Lymphs (Man) 0.0 K/mm3 12/08/18 04:55 Monocytes # (Manual) 0.0 K/mm3 (0.0-0.8) 12/08/18 04:55 Eosinophils # (Manual) 0.0 K/mm3 (0.0-0.4) 12/08/18 04:55 Basophils # (Manual) 0.0 K/mm3 (0.0-0.1) 12/08/18 04:55 Metamyelocytes # 0.0 K/mm3 12/08/18 04:55 Myelocytes # 0.0 K/mm3 12/08/18 04:55 Promyelocytes # 0.0 K/mm3 12/08/18 04:55 Blast Cells # 0.0 K/mm3 12/08/18 04:55 WBC Morphology Not Reportable 12/08/18 04:55 Hypersegmented Neuts Not Reportable 12/08/18 04:55 Hyposegmented Neuts Not Reportable 12/08/18 04:55 Hypogranular Neuts Not Reportable 12/08/18 04:55 Smudge Cells Not Reportable 12/08/18 04:55 Toxic Granulation Not Reportable 12/08/18 04:55 Toxic Vacuolation Not Reportable 12/08/18 04:55 Dohle Bodies Not Reportable 12/08/18 04:55 Pelger-Huet Anomaly Not Reportable 12/08/18 04:55 Carolyn Rods Not Reportable 12/08/18 04:55 Platelet Estimate Appears normal 12/08/18 04:55 Clumped Platelets Not Reportable 12/08/18 04:55 Plt Clumps, EDTA Not Reportable 12/08/18 04:55 Large Platelets Not Reportable 12/08/18 04:55 Giant Platelets Not Reportable 12/08/18 04:55 Platelet Satelliting Not Reportable 12/08/18 04:55 Plt Morphology Comment Not Reportable 12/08/18 04:55 RBC Morphology Not Reportable 12/08/18 04:55 Dimorphic RBCs Not Reportable 12/08/18 04:55 Polychromasia Not Reportable 12/08/18 04:55 Hypochromasia Not Reportable 12/08/18 04:55 Poikilocytosis Not Reportable 12/08/18 04:55 Anisocytosis 1+ 12/08/18 04:55 Microcytosis Not Reportable 12/08/18 04:55 Macrocytosis Not Reportable 12/08/18 04:55 Spherocytes Not Reportable 12/08/18 04:55 Pappenheimer Bodies Not Reportable 12/08/18 04:55 Sickle Cells Not Reportable 12/08/18 04:55 Target Cells Not Reportable 12/08/18 04:55 Tear Drop Cells Few 12/08/18 04:55 Ovalocytes 2+ 12/08/18 04:55 Stomatocytes Rare 12/08/18 04:55 Helmet Cells Not Reportable 12/08/18 04:55 P[place] Bodies Not Reportable 12/08/18 04:55 [place] Rings Not Reportable 12/08/18 04:55 [place] Cells Not Reportable 12/08/18 04:55 Bite Cells Not Reportable 12/08/18 04:55 Crenated Cell Not Reportable 12/08/18 04:55 Elliptocytes Rare 12/08/18 04:55 Acanthocytes (Spur) Not Reportable 12/08/18 04:55 Rouleaux Not Reportable 12/08/18 04:55 Hemoglobin C Crystals Not Reportable 12/08/18 04:55 Schistocytes Not Reportable 12/08/18 04:55 Malaria parasites Not Reportable 12/08/18 04:55 Adolfo Bodies Not Reportable 12/08/18 04:55 Hem Pathologist Commnt No 12/08/18 04:55 Sodium 142 mmol/L (137-145) 12/06/18 05:27 Potassium 4.1 mmol/L (3.6-5.0) 12/06/18 05:27 Chloride 103.1 mmol/L (98-107) 12/06/18 05:27 Carbon Dioxide 26 mmol/L (22-30) 12/06/18 05:27 Anion Gap 17 mmol/L 12/06/18 05:27 BUN 16 mg/dL (7-17) 12/06/18 05:27 Creatinine 0.8 mg/dL (0.7-1.2) 12/06/18 05:27 Estimated GFR > 60 ml/min 12/06/18 05:27 BUN/Creatinine Ratio 20 % 12/06/18 05:27 Glucose 158 mg/dL (65-100) H 12/06/18 05:27 POC Glucose 172 (70-105) H 12/08/18 07:54 Calcium 9.1 mg/dL (8.4-10.2) 12/06/18 05:27 Magnesium 1.50 mg/dL (1.7-2.3) L 12/05/18 22:56 Total Bilirubin 0.30 mg/dL (0.1-1.2) 12/05/18 22:56 AST 18 units/L (5-40) 12/05/18 22:56 ALT 19 units/L (7-56) 12/05/18 22:56 Alkaline Phosphatase 76 units/L (35-129) 12/05/18 22:56 Troponin T < 0.010 ng/mL (0.00-0.029) 12/06/18 00:05 NT-Pro-B Natriuret Pep 448.0 pg/mL (0-900) 12/05/18 22:56 Total Protein 7.0 g/dL (6.3-8.2) 12/05/18 22:56 Albumin 4.0 g/dL (3.9-5) 12/05/18 22:56 Albumin/Globulin Ratio 1.3 % 12/05/18 22:56
[2018-12-08] MEDS: NEURONTIN PO SCH (22:47)
[2018-12-08] MEDS: CALAN SR PO SCH (22:47)
[2018-12-08] MEDS: PRAVACHOL PO SCH (22:47)
[2018-12-08] MEDS ORDERED: SPIRIVA IH SCH (23:45)
[2018-12-09] MEDS: SOLU-Medrol IV SCH ×6 (00:55→18:18)
[2018-12-09] MEDS: DUONEB *Not for PRN Use IH SCH ×4 (02:04→20:30)
[2018-12-09] MEDS: SYNTHROID PO SCH (06:26)
[2018-12-09] MEDS: ROCEPHIN/NS 1 GM/50 ML 1 GM/50 ML BAG IV SCH (06:27)
[2018-12-09] MEDS: GLUCOTROL PO SCH ×2 (09:23→09:24)
[2018-12-09] MEDS: HumaLOG SUB-Q SCH ×4 (09:25→22:42)
[2018-12-09] MEDS: MUCINEX ER PO SCH ×2 (10:33→22:40)
[2018-12-09] MEDS: NORMODYNE PO SCH ×2 (10:33→22:39)
[2018-12-09] MEDS: ECOTRIN PO SCH (10:33)
[2018-12-09] MEDS: CLARITIN PO SCH (10:33)
[2018-12-09] MEDS: PEPCID PO SCH (10:34)
[2018-12-09] MEDS: SODIUM CHLORIDE FLUSH SYRINGE 10 ML IV SCH ×2 (10:35→22:00)
[2018-12-09] MEDS: LOVENOX SUB-Q SCH (10:36)
[2018-12-09] MEDS: HYDROMET PO PRN ×2 (10:43→22:46)
[2018-12-09] MEDS ORDERED: SOLU-Medrol IV SCH (12:10)
[2018-12-09] MEDS ORDERED: NON-FORMULARY (Budesonide/Formoterol Fumarate [Symbicort 160-4.5 Mcg Inhaler] 10.2 GM) IH SCH (12:15)
[2018-12-09] MEDS: PULMICORT IH SCH ×2 (14:29→20:30)
[2018-12-09] MEDS: BROVANA NEBU IH SCH ×2 (14:29→20:31)
--- NOTE | 2018-12-09 15:10 | Progress Note ---
Assessment and Plan Assessment and plan: Acute COPD exacerbation -Improving -cont steroid taper, mucinex, pulmicort, duonebs and antibiotic -Pulmonology consulted Acute respiratory failure with hypoxia -cont 02 supplementation as needed and duonebs -for home 02 eval on d/c SIRS due to non-infectious cause, present on admission -stable on empiric antibiotic Diarrhea -resolved -C. difficile toxin pending Hypertension -controlled on meds DM2 -BG trended up, likely due to the steroid -Cont SSI and glipizide, will add Lantus Hyperlipidemia -on statin Hypothyroidism -cont synthroid Obesity with BMI of 38.9 -Lifestyle modification recommended Disposition: will monitor patient for another 24 hours due to the worsened cough with sob and plan for DC in a.m. if clinically stable History Interval history: Patient reported severe cough with sob, which disturbed her sleep Hospitalist Physical - Constitutional Vitals: Temp Pulse Resp BP Pulse Ox 97.8 F 78 18 151/58 93 12/09/18 12:36 12/09/18 12:36 12/09/18 12:36 12/09/18 12:36 12/09/18 12:36 General appearance: Present: no acute distress - EENT Eyes: Present: PERRL, EOM intact ENT: hearing intact, clear oral mucosa - Neck Neck: Present: supple - Respiratory Respiratory effort: normal Respiratory: bilateral: diminished - Cardiovascular Rhythm: regular Heart Sounds: Present: S1 & S2 - Extremities Extremity abnormal: other (trace edema in BLE) - Abdominal General gastrointestinal: soft, non-tender, normal bowel sounds - Neurologic Neurologic: CNII-XII intact Results - Labs CBC & Chem 7: 12/08/18 04:55 12/06/18 05:27 Labs: Laboratory Last Values WBC 14.1 K/mm3 (4.5-11.0) H 12/08/18 04:55 RBC 3.68 M/mm3 (3.65-5.03) 12/08/18 04:55 Hgb 11.0 gm/dl (10.1-14.3) 12/08/18 04:55 Hct 32.7 % (30.3-42.9) 12/08/18 04:55 MCV 89 fl (79-97) 12/08/18 04:55 MCH 30 pg (28-32) 12/08/18 04:55 MCHC 34 % (30-34) 12/08/18 04:55 RDW 13.6 % (13.2-15.2) 12/08/18 04:55 Plt Count 270 K/mm3 (140-440) 12/08/18 04:55 Lymph % (Auto) 4.7 % (13.4-35.0) L 12/05/18 22:56 [place] % (Auto) 5.6 % (0.0-7.3) 12/05/18 22:56 Eos % (Auto) 0.0 % (0.0-4.3) 12/05/18 22:56 Baso % (Auto) 0.4 % (0.0-1.8) 12/05/18 22:56 Lymph # 0.8 K/mm3 (1.2-5.4) L 12/05/18 22:56 [place] # 0.9 K/mm3 (0.0-0.8) H 12/05/18 22:56 Eos # 0.0 K/mm3 (0.0-0.4) 12/05/18 22:56 Baso # 0.1 K/mm3 (0.0-0.1) 12/05/18 22:56 Add Manual Diff Complete 12/08/18 04:55 Total Counted 100 12/08/18 04:55 Seg Neutrophils % [place] 12/08/18 04:55 Seg Neuts % (Manual) 97.0 % (40.0-70.0) H 12/08/18 04:55 Band Neutrophils % 0 % 12/08/18 04:55 Lymphocytes % (Manual) 3.0 % (13.4-35.0) L 12/08/18 04:55 Reactive Lymphs % (Man) 0 % 12/08/18 04:55 Monocytes % (Manual) 0 % (0.0-7.3) 12/08/18 04:55 Eosinophils % (Manual) 0 % (0.0-4.3) 12/08/18 04:55 Basophils % (Manual) 0 % (0.0-1.8) 12/08/18 04:55 Metamyelocytes % 0 % 12/08/18 04:55 Myelocytes % 0 % 12/08/18 04:55 Promyelocytes % 0 % 12/08/18 04:55 Blast Cells % 0 % 12/08/18 04:55 Nucleated RBC % Not Reportable 12/08/18 04:55 Seg Neutrophils # 14.6 K/mm3 (1.8-7.7) H 12/05/18 22:56 Seg Neutrophils # Man 13.7 K/mm3 (1.8-7.7) H 12/08/18 04:55 Band Neutrophils # 0.0 K/mm3 12/08/18 04:55 Lymphocytes # (Manual) 0.4 K/mm3 (1.2-5.4) L 12/08/18 04:55 Abs React Lymphs (Man) 0.0 K/mm3 12/08/18 04:55 Monocytes # (Manual) 0.0 K/mm3 (0.0-0.8) 12/08/18 04:55 Eosinophils # (Manual) 0.0 K/mm3 (0.0-0.4) 12/08/18 04:55 Basophils # (Manual) 0.0 K/mm3 (0.0-0.1) 12/08/18 04:55 Metamyelocytes # 0.0 K/mm3 12/08/18 04:55 Myelocytes # 0.0 K/mm3 12/08/18 04:55 Promyelocytes # 0.0 K/mm3 12/08/18 04:55 Blast Cells # 0.0 K/mm3 12/08/18 04:55 WBC Morphology Not Reportable 12/08/18 04:55 Hypersegmented Neuts Not Reportable 12/08/18 04:55 Hyposegmented Neuts Not Reportable 12/08/18 04:55 Hypogranular Neuts Not Reportable 12/08/18 04:55 Smudge Cells Not Reportable 12/08/18 04:55 Toxic Granulation Not Reportable 12/08/18 04:55 Toxic Vacuolation Not Reportable 12/08/18 04:55 Dohle Bodies Not Reportable 12/08/18 04:55 Pelger-Huet Anomaly Not Reportable 12/08/18 04:55 Carolyn Rods Not Reportable 12/08/18 04:55 Platelet Estimate Appears normal 12/08/18 04:55 Clumped Platelets Not Reportable 12/08/18 04:55 Plt Clumps, EDTA Not Reportable 12/08/18 04:55 Large Platelets Not Reportable 12/08/18 04:55 Giant Platelets Not Reportable 12/08/18 04:55 Platelet Satelliting Not Reportable 12/08/18 04:55 Plt Morphology Comment Not Reportable 12/08/18 04:55 RBC Morphology Not Reportable 12/08/18 04:55 Dimorphic RBCs Not Reportable 12/08/18 04:55 Polychromasia Not Reportable 12/08/18 04:55 Hypochromasia Not Reportable 12/08/18 04:55 Poikilocytosis Not Reportable 12/08/18 04:55 Anisocytosis 1+ 12/08/18 04:55 Microcytosis Not Reportable 12/08/18 04:55 Macrocytosis Not Reportable 12/08/18 04:55 Spherocytes Not Reportable 12/08/18 04:55 Pappenheimer Bodies Not Reportable 12/08/18 04:55 Sickle Cells Not Reportable 12/08/18 04:55 Target Cells Not Reportable 12/08/18 04:55 Tear Drop Cells Few 12/08/18 04:55 Ovalocytes 2+ 12/08/18 04:55 Stomatocytes Rare 12/08/18 04:55 Helmet Cells Not Reportable 12/08/18 04:55 [place] Bodies Not Reportable 12/08/18 04:55 [place] Rings Not Reportable 12/08/18 04:55 [place] Cells Not Reportable 12/08/18 04:55 Bite Cells Not Reportable 12/08/18 04:55 Crenated Cell Not Reportable 12/08/18 04:55 Elliptocytes Rare 12/08/18 04:55 Acanthocytes (Spur) Not Reportable 12/08/18 04:55 Rouleaux Not Reportable 12/08/18 04:55 Hemoglobin C Crystals Not Reportable 12/08/18 04:55 Schistocytes Not Reportable 12/08/18 04:55 Malaria parasites Not Reportable 12/08/18 04:55 Adolfo Bodies Not Reportable 12/08/18 04:55 Hem Pathologist Commnt No 12/08/18 04:55 Sodium 142 mmol/L (137-145) 12/06/18 05:27 Potassium 4.1 mmol/L (3.6-5.0) 12/06/18 05:27 Chloride 103.1 mmol/L (98-107) 12/06/18 05:27 Carbon Dioxide 26 mmol/L (22-30) 12/06/18 05:27 Anion Gap 17 mmol/L 12/06/18 05:27 BUN 16 mg/dL (7-17) 12/06/18 05:27 Creatinine 0.8 mg/dL (0.7-1.2) 12/06/18 05:27 Estimated GFR > 60 ml/min 12/06/18 05:27 BUN/Creatinine Ratio 20 % 12/06/18 05:27 Glucose 158 mg/dL (65-100) H 12/06/18 05:27 POC Glucose 221 (70-105) H 12/09/18 11:24 Calcium 9.1 mg/dL (8.4-10.2) 12/06/18 05:27 Magnesium 1.50 mg/dL (1.7-2.3) L 12/05/18 22:56 Total Bilirubin 0.30 mg/dL (0.1-1.2) 12/05/18 22:56 AST 18 units/L (5-40) 12/05/18 22:56 ALT 19 units/L (7-56) 12/05/18 22:56 Alkaline Phosphatase 76 units/L (35-129) 12/05/18 22:56 Troponin T < 0.010 ng/mL (0.00-0.029) 12/06/18 00:05 NT-Pro-B Natriuret Pep 448.0 pg/mL (0-900) 12/05/18 22:56 Total Protein 7.0 g/dL (6.3-8.2) 12/05/18 22:56 Albumin 4.0 g/dL (3.9-5) 12/05/18 22:56 Albumin/Globulin Ratio 1.3 % 12/05/18 22:56
[2018-12-09] MEDS ORDERED: LANTUS SUB-Q SCH (22:00)
[2018-12-09] MEDS: CALAN SR PO SCH (22:40)
[2018-12-09] MEDS: NEURONTIN PO SCH (22:40)
[2018-12-09] MEDS: PRAVACHOL PO SCH (22:41)
[2018-12-10] MEDS: DUONEB *Not for PRN Use IH SCH ×4 (00:06→12:01)
[2018-12-10] MEDS: SOLU-Medrol IV SCH ×2 (01:00→05:43)
[2018-12-10] MEDS: SYNTHROID PO SCH (05:43)
[2018-12-10] MEDS: ROCEPHIN/NS 1 GM/50 ML 1 GM/50 ML BAG IV SCH (05:43)
[2018-12-10] MEDS: HumaLOG SUB-Q SCH ×2 (08:20→12:30)
[2018-12-10] MEDS: GLUCOTROL PO SCH (08:20)
[2018-12-10] MEDS: PULMICORT IH SCH (08:47)
[2018-12-10] MEDS: BROVANA NEBU IH SCH (08:47)
[2018-12-10] MEDS: NORMODYNE PO SCH (10:26)
[2018-12-10] MEDS: ECOTRIN PO SCH (10:26)
[2018-12-10] MEDS: PEPCID PO SCH (10:26)
[2018-12-10] MEDS: CLARITIN PO SCH (10:26)
[2018-12-10] MEDS: MUCINEX ER PO SCH (10:26)
[2018-12-10] MEDS: LOVENOX SUB-Q SCH (10:27)
[2018-12-10] MEDS: HYDROMET PO PRN (10:38)
[2018-12-10 12:08] VITALS: BP 136/54
--- NOTE | 2018-12-10 14:24 | Consultation ---
History of Present Illness Consult date: 12/10/18 Requesting physician: HASMUKH PINTO Reason for consult: COPD History of present illness: PULMONARY/CCM CONSULT NOTE (Full dictation # ) Please see dictated notes for full details Medications and Allergies Allergies Allergy/AdvReac Type Severity Reaction Status Date / Time contact metal agent Allergy Rash Verified 06/15/18 07:40 latex Allergy Hives Verified 01/19/14 12:55 levofloxacin AdvReac Unknown Verified 12/06/18 02:22 Home Medications Medication Instructions Recorded Confirmed Last Taken Type Albuterol Sulfate [Ventolin Hfa] 2 puff INHALATION Q4H PRN 06/15/18 12/06/18 06/01/18 History 2 puffs Aspirin EC [Aspirin Enteric Coated 325 mg PO DAILY 06/15/18 12/06/18 06/14/18 22 :00 History TAB] 325mg Gabapentin [Neurontin] 300 mg PO HS 06/15/18 12/06/18 06/14/18 History 300mg Labetalol HCl 300 mg PO BID 06/15/18 12/06/18 06/15/18 06:00 History 300mg Levothyroxine [Synthroid] 112 mcg PO DAILY 06/15/18 12/06/18 06/15/18 06:00 History 112 mcg Pravastatin [Pravachol] 20 mg PO HS 06/15/18 12/06/18 06/14/18 History 20mg Verapamil ER [Calan SR] 180 mg PO HS 06/15/18 12/06/18 06/14/18 22:30 History 180mg Cetirizine HCl [Allergy Relief] 10 mg PO DAILY 08/19/18 12/06/18 Unknown History glipiZIDE [Glucotrol] 5 mg PO QDAY #30 tablet 08/24/18 12/06/18 Unknown Rx Budesonide/Formoterol Fumarate 10.2 gm IH BID 12/06/18 12/06/18 Unknown History [Symbicort 160-4.5 Mcg Inhaler] Tiotropium [Spiriva] 2 puff IH DAILY 12/06/18 12/06/18 Unknown History guaiFENesin ER [Mucinex ER] 600 mg PO BID #10 tablet 12/10/18 Unknown Rx methylPREDNISolone [Medrol Dose 4 mg PO DAILY #21 pack 12/10/18 Unknown Rx Peña] Active Meds: Active Medications Acetaminophen (Tylenol) 650 mg PO Q4H PRN PRN Reason: Pain MILD(1-3)/Fever >100.5/ROGERS Albuterol (Proventil) 2.5 mg IH Q4HRT PRN PRN Reason: Shortness Of Breath Last Admin: 12/06/18 10:18 Dose: 2.5 mg Documented by: Albuterol/Ipratropium (Duoneb *Not For Prn Use*) 1 ampul IH Q4HRT [facility] Last Admin: 12/10/18 12:01 Dose: 1 ampul Documented by: Arformoterol Tartrate (Brovana Nebu) 15 mcg IH Q12HRT [facility] Last Admin: 12/10/18 08:47 Dose: 15 mcg Documented by: Aspirin (Ecotrin) 325 mg PO DAILY [facility] Last Admin: 12/10/18 10:26 Dose: 325 mg Documented by: Budesonide (Pulmicort) 0.5 mg IH Q12HRT [facility] Last Admin: 12/10/18 08:47 Dose: 0.5 mg Documented by: Dextrose (D50w (25gm) Syringe) 50 ml IV PRN PRN PRN Reason: Hypoglycemia Enoxaparin Sodium (Lovenox) 40 mg SUB-Q QDAY@1000 [facility] Last Admin: 12/10/18 10:27 Dose: 40 mg Documented by: Famotidine (Pepcid) 20 mg PO DAILY [facility] Last Admin: 12/10/18 10:26 Dose: 20 mg Documented by: Gabapentin (Neurontin) 300 mg PO HS [facility] Last Admin: 12/09/18 22:40 Dose: 300 mg Documented by: Glipizide (Glucotrol) 5 mg PO QDDIAB [facility] Last Admin: 12/10/18 08:20 Dose: 5 mg Documented by: Guaifenesin (Mucinex Er) 600 mg PO BID [facility] Last Admin: 12/10/18 10:26 Dose: 600 mg Documented by: Hydrocodone Bit/Homatropine Methylb (Hydromet) 5 ml PO Q6H PRN PRN Reason: Cough Last Admin: 12/10/18 10:38 Dose: 5 ml Documented by: Ceftriaxone Sodium (Rocephin/Ns 1 Gm/50 Ml) 1 gm in 50 mls @ 100 mls/hr IV Q24HR@0600 [facility]; Protocol Last Admin: 12/10/18 05:43 Dose: 100 mls/hr Documented by: Insulin Glargine (Lantus) 10 units SUB-Q QHS [facility] Last Admin: 12/09/18 22:41 Dose: 10 units Documented by: Insulin Human Lispro (Humalog) 0 unit SUB-Q ACHS [facility]; Protocol Last Admin: 12/10/18 12:30 Dose: 3 unit Documented by: Labetalol HCl (Normodyne) 300 mg PO BID [facility] Last Admin: 12/10/18 10:26 Dose: 300 mg Documented by: Levothyroxine Sodium (Synthroid) 112 mcg PO DAILY@0600 [facility] Last Admin: 12/10/18 05:43 Dose: 112 mcg Documented by: Loratadine (Claritin) 10 mg PO DAILY [facility] Last Admin: 12/10/18 10:26 Dose: 10 mg Documented by: Methylprednisolone Sodium Succinate (Solu-Medrol) 40 mg IV Q6HR [facility] Last Admin: 12/10/18 05:43 Dose: 40 mg Documented by: Ondansetron HCl (Zofran) 4 mg IV Q8H PRN PRN Reason: Nausea And Vomiting Pravastatin Sodium (Pravachol) 20 mg PO HS [facility] Last Admin: 12/09/18 22:41 Dose: 20 mg Documented by: Sodium Chloride (Sodium Chloride Flush Syringe 10 Ml) 10 ml IV BID [facility] Last Admin: 12/09/18 22:00 Dose: 10 ml Documented by: Sodium Chloride (Sodium Chloride Flush Syringe 10 Ml) 10 ml IV PRN PRN PRN Reason: LINE FLUSH Verapamil HCl (Calan Sr) 180 mg PO QHS [facility] Last Admin: 12/09/18 22:40 Dose: 180 mg Documented by: Physical Examination Vital signs: Vital Signs Temp Pulse Resp BP Pulse Ox 98.2 F 139 H 18 174/85 94 12/05/18 22:07 12/05/18 22:07 12/05/18 22:07 12/05/18 22:07 12/05/18 22:07 Results - Laboratory Findings CBC and BMP: 12/08/18 04:55 12/06/18 05:27 Abnormal lab findings: Abnormal Labs 12/05/18 12/05/18 12/06/18 22:56 22:56 05:27 WBC 16.4 H 15.9 H Lymph % (Auto) 4.7 L Lymph # 0.8 L Adams # 0.9 H Seg Neutrophils % 89.3 H Seg Neuts % (Manual) 95.0 H Lymphocytes % (Manual) 3.0 L Seg Neutrophils # 14.6 H Seg Neutrophils # Man 15.1 H Lymphocytes # (Manual) 0.5 L Glucose 180 H POC Glucose Magnesium 1.50 L 12/06/18 12/06/18 12/06/18 05:27 09:32 16:19 WBC Lymph % (Auto) Lymph # Adams # Seg Neutrophils % Seg Neuts % (Manual) Lymphocytes % (Manual) Seg Neutrophils # Seg Neutrophils # Man Lymphocytes # (Manual) Glucose 158 H POC Glucose 191 H 124 H Magnesium 12/06/18 12/07/18 12/07/18 21:56 07:55 12:25 WBC Lymph % (Auto) Lymph # Adams # Seg Neutrophils % Seg Neuts % (Manual) Lymphocytes % (Manual) Seg Neutrophils # Seg Neutrophils # Man Lymphocytes # (Manual) Glucose POC Glucose 232 H 184 H 159 H Magnesium 12/07/18 12/07/18 12/08/18 17:45 21:31 04:55 WBC 14.1 H Lymph % (Auto) Lymph # Adams # Seg Neutrophils % Seg Neuts % (Manual) 97.0 H Lymphocytes % (Manual) 3.0 L Seg Neutrophils # Seg Neutrophils # Man 13.7 H Lymphocytes # (Manual) 0.4 L Glucose POC Glucose 168 H 226 H Magnesium 12/08/18 12/08/18 12/08/18 07:54 11:40 16:25 WBC Lymph % (Auto) Lymph # Adams # Seg Neutrophils % Seg Neuts % (Manual) Lymphocytes % (Manual) Seg Neutrophils # Seg Neutrophils # Man Lymphocytes # (Manual) Glucose POC Glucose 172 H 201 H 111 H Magnesium 12/08/18 12/09/18 12/09/18 21:38 07:52 11:24 WBC Lymph % (Auto) Lymph # Adams # Seg Neutrophils % Seg Neuts % (Manual) Lymphocytes % (Manual) Seg Neutrophils # Seg Neutrophils # Man Lymphocytes # (Manual) Glucose POC Glucose 205 H 182 H 221 H Magnesium 12/09/18 12/09/18 12/10/18 16:47 20:46 07:34 WBC Lymph % (Auto) Lymph # Adams # Seg Neutrophils % Seg Neuts % (Manual) Lymphocytes % (Manual) Seg Neutrophils # Seg Neutrophils # Man Lymphocytes # (Manual) Glucose POC Glucose 145 H 272 H 168 H Magnesium 12/10/18 11:17 WBC Lymph % (Auto) Lymph # Adams # Seg Neutrophils % Seg Neuts % (Manual) Lymphocytes % (Manual) Seg Neutrophils # Seg Neutrophils # Man Lymphocytes # (Manual) Glucose POC Glucose 175 H Magnesium
--- NOTE | 2018-12-11 16:07 | Discharge Summary ---
Providers - Providers Date of Admission: 12/06/18 02:53 Date of discharge: 12/10/18 Attending physician: HASMUKH PINTO 12/09/18 12:11 Consult to Physician [CONS] Routine Comment: Consulting Provider: NIKA GALDAMEZ Physician Instructions: Reason For Exam: COPD EXACERBATION WITH HYPOXIA Primary care physician: HERNAN PRAKINSON Hospitalization Reason for admission: Acute COPD exacerbation, Hypoxia, Diarrhea Condition: Stable Pertinent studies: CXR: Negative Procedures: None Hospital course: Final discharge diagnoses: Acute COPD exacerbation Acute respiratory failure with hypoxia SIRS due to non-infectious cause Diarrhea Hypertension DM2 Hyperlipidemia Hypothyroidism Obesity with BMI of 38.9 Hospital course: On admission, patient was continued on oxygen supplementation as needed as well as steroids, nebulizer breathing treatments and antibiotic. For her orther comorbidities, she was continued on her home medications. For the diarrhea, stool culture was done and it later came back positive for Carolyne albicans which is insignificant. Subsequently, the patient improved clinically and she was then deemed stable for discharge with clinic follow-up. On discharge, she was evaluated for home oxygen which she did not qualify for. Disposition: DC-01 TO HOME OR SELFCARE Time spent for discharge: 35 minutes Core Measure Documentation - Palliative Care Palliative Care/ Comfort Measures: Not Applicable - Core Measures Any of the following diagnoses?: none Exam - Constitutional Vitals: Temp Pulse Resp BP Pulse Ox 97.6 F 81 20 136/54 91 12/10/18 12:06 12/10/18 12:15 12/10/18 12:15 12/10/18 12:07 12/10/18 12:06 General appearance: Present: no acute distress, obese - EENT Eyes: Present: PERRL, EOM intact ENT: hearing intact, clear oral mucosa - Neck Neck: Present: supple, normal ROM - Respiratory Respiratory effort: normal Respiratory: bilateral: CTA - Cardiovascular Rhythm: regular Heart Sounds: Present: S1 & S2. Absent: rub, click - Extremities Extremities: No edema - Abdominal General gastrointestinal: Present: soft, non-tender, non-distended, normal bowel sounds - Integumentary Integumentary: Present: clear, warm, dry - Musculoskeletal Musculoskeletal: gait normal, strength equal bilaterally - Psychiatric Psychiatric: appropriate mood/affect, intact judgment & insight - Neurologic Neurologic: CNII-XII intact, moves all extremities Plan Follow up with: HERNAN PARKINSON MD [Primary Care Provider] - 7 Days Prescriptions: guaiFENesin ER [Mucinex ER] 600 mg PO BID #10 tablet methylPREDNISolone [Medrol Dose Peña] 4 mg PO DAILY #21 pack
== END 2018-12-10 13:00 | disposition home or self-care (01) | DRG 189 ==
LOC: ED 22:00 → 3A 12-06 02:53
PROVIDERS: ADMIT Internal Medicine; ATTEND Internal Medicine
DX: J96.01 Acute respiratory failure with hypoxia (principal); J44.1 Chronic obstructive pulmonary disease with (acute) exacerbation; R65.10 Systemic inflammatory response syndrome (SIRS) of non-infectious origin without acute organ dysfunction; R19.7 Diarrhea, unspecified; E78.00 Pure hypercholesterolemia, unspecified; I10 Essential (primary) hypertension; E78.5 Hyperlipidemia, unspecified; E66.9 Obesity, unspecified; E03.9 Hypothyroidism, unspecified; E11.9 Type 2 diabetes mellitus without complications; Z90.89 Acquired absence of other organs; Z98.51 Tubal ligation status; Z82.49 Family history of ischemic heart disease and other diseases of the circulatory system; Z79.51 Long term (current) use of inhaled steroids; Z79.82 Long term (current) use of aspirin; Z79.84 Long term (current) use of oral hypoglycemic drugs; Z79.899 Other long term (current) drug therapy; Z88.1 Allergy status to other antibiotic agents; Z91.041 Radiographic dye allergy status; Z91.040 Latex allergy status; Z87.891 Personal history of nicotine dependence; Z68.38 Body mass index [BMI] 38.0-38.9, adult; Z71.3 Dietary counseling and surveillance
CPT/HCPCS: 36415; 71046; 80048; 80053; 82962; 83735; 83880; 84484; 85007; 85025; 87045; 87324; 93005; 93010; 94640; 94760; G0378; A9270-GY; J0696; J1100; J1650; J1815; J2920; J2930; J7030

== ENCOUNTER 2020-07-04 09:04 | Outpatient (CLI) | payer OTHER ==
--- NOTE | 2020-07-04 14:14 | Vascular Lab Report ---
DUPLEX DOPPLER LOWER EXTREMITY VEINS, LEFT INDICATION: R60.9 Edema, unspecified. TECHNIQUE: Duplex doppler imaging was performed through the veins of the left lower extremity using venous compr ession and other maneuvers. COMPARISON: No relevant prior imaging study available. FINDINGS: Left Common femoral vein: Negative. Left Superficial femoral vein: Negative. Left Popliteal vein: Negative. Left Calf veins: Negative. Additional findings: None.. IMPRESSION: 1. No sonographic evidence for DVT in the left lower extremity. Signer Name: Caesar Vivas MD Signed: 07/04/2020 2:10 PM Workstation Name: [id number]
== END 2020-07-04 09:05 | disposition home or self-care (01) ==
LOC: VAS 09:04
PROVIDERS: ATTEND Internal Medicine Cardiovascular Disease
DX: I82.402 Acute embolism and thrombosis of unspecified deep veins of left lower extremity (principal); R60.9 Edema, unspecified

== ENCOUNTER 2020-08-13 11:55 | Outpatient (CLI) | payer OTHER ==
[2020-08-13 13:36] LABS: Hematocrit 36.2 % (30.3-42.9); Hemoglobin 12.1 gm/dl (10.1-14.3); Mean Corpuscular HGB Conc 33 % (30-34); Mean Corpuscular Volume 87 fl (79-97); Platelet Count 285 K/mm3 (140-440); Red Blood Count 4.14 M/mm3 (3.65-5.03); Red Cell Distribution Width 14.4 % (13.2-15.2)
[2020-08-13 13:45] LABS: Alanine Aminotransferase 18 units/L (7-56); Albumin 4.3 g/dL (3.9-5); Blood Urea Nitrogen 10 mg/dL (7-17); Calcium 9.8 mg/dL (8.4-10.2); Hemolysis Index 4
[2020-08-13 14:07] LABS: BUN/Creatinine Ratio 14
--- NOTE | 2020-08-13 15:46 | Cat Scan Report ---
CTA CHEST WITH CONTRAST INDICATION / CLINICAL INFORMATION: MAIN. shortness of breath. TECHNIQUE: Axial CT images were obtained through the chest after injection of IV contrast. 3 plane MIP and/or 3D reconstructions were produced. All CT scans at this location are performed using CT dose reduction f or ALARA by means of automated exposure control. COMPARISON: Prior CT chest dated 08/19/2018 FINDINGS: PULMONARY ARTERIES: No pulmonary emboli. THORACIC AORTA: Mild atherosclerotic calcification without acute abnormality. HEART: No right heart strain. Small pericardial effusion. CORONARY ARTERIES: Mild calcified coronary artery disease. MEDIASTINUM / JOSHUA: No significant abnormality. PLEURA: No pleural effusion. No pneumothorax. LUNGS: No acute air space or interstitial disease. ADDITIONAL FINDINGS: None. UPPER ABDOMEN: Multiple small calcified gallstones are noted. SKELETAL STRUCTURES: Multilevel degenerative changes are noted of the spine. No aggressive osseous le luisana. IMPRESSION: 1. No CT evidence for pulmonary embolism or right heart strain. 2. No acute findings. Signer Name: Binh Valle MD Signed: 08/13/2020 3:42 PM Workstation Name: [id number]
== END 2020-08-13 11:56 | disposition home or self-care (01) ==
LOC: CT 11:55
PROVIDERS: ATTEND Internal Medicine
DX: J90 Pleural effusion, not elsewhere classified (principal); I25.10 Atherosclerotic heart disease of native coronary artery without angina pectoris; M47.814 Spondylosis without myelopathy or radiculopathy, thoracic region; I70.0 Atherosclerosis of aorta; K80.80 Other cholelithiasis without obstruction
CPT/HCPCS: 36415; 71275; 80053; 85027; Q9967